=== PATIENT | male | born 1960 | race Caucasian/White ===

== ENCOUNTER 2021-03-27 08:52 | Day surgery (SDC) | payer OTHER, MEDICAID, SELFPAY ==
[~2021-03-27] VITALS: Ht 172.7 cm; Wt 113.4 kg
[2021-03-27] MEDS ORDERED: LEVOFLOXACIN IN DEXTROSE 5 % 100 ML IV ONE (10:00)
[2021-03-27] MEDS ORDERED: CLINDAMYCIN PHOS 600 MG/ D5W 50 ML PREMIX IV ONE (10:00)
[2021-03-27] MEDS ORDERED: BUPIVACAINE LIPOSOME/PF 266 MG/20 ML VIAL INFIL ONE (12:41)
[2021-03-27] MEDS ORDERED: NALOXONE HCL 0.4 MG/ML AMP (NARCAN) IVP PRN (14:00)
[2021-03-27] MEDS ORDERED: MEPERIDINE HCL/PF 25 MG/ML DISP.SYRIN IVP PRN (14:00)
[2021-03-27] MEDS ORDERED: LR 1,000 ML IV SCH (14:00)
[2021-03-27] MEDS ORDERED: MORPHINE 4 MG INJ. 4 MG/ML VIAL IVP PRN ×2 (14:00)
[2021-03-27] MEDS ORDERED: KETOROLAC TROMETHAMINE 30 MG VIAL IVP PRN (14:00)
[2021-03-27] MEDS ORDERED: ONDANSETRON HCL 4 MG/2 ML VIAL IVP PRN ×2 (14:00→16:30)
[2021-03-27] MEDS ORDERED: KETOROLAC TROMETHAMINE 15 MG VIAL IVP PRN (16:30)
[2021-03-27] MEDS ORDERED: LORazepam 2 MG/ML VIAL IVP PRN (16:30)
[2021-03-27] MEDS ORDERED: GABAPENTIN 100 MG CAPSULE PO PRN (16:45)
[2021-03-27] MEDS ORDERED: ONDANSETRON HCL 4 MG/2 ML VIAL ONE (17:01)
[2021-03-27] MEDS ORDERED: fentaNYL CITRATE/PF 100 MCG/2 ML AMP IVP ONE (17:36)
[2021-03-27] MEDS ORDERED: KETOROLAC TROMETHAMINE 30 MG VIAL IVP ONE (17:36)
[2021-03-27] MEDS ORDERED: NEOSTIGMINE METHYLSULFATE 1 MG/ML, 10 ML VIAL IVP ONE (17:36)
[2021-03-27] MEDS ORDERED: DEXAMETHASONE SOD PHOSPHATE 4 MG/ML VIAL IVP ONE (17:36)
[2021-03-27] MEDS ORDERED: SEVOFLURANE 15 MIN GAS INH ONE (17:36)
[2021-03-27] MEDS ORDERED: METOCLOPRAMIDE HCL 10 MG/2 ML VIAL IVP ONE (17:36)
[2021-03-27] MEDS ORDERED: BUPIVACAINE /PF 0.25% 30 ML VIAL INJ ONE (17:36)
[2021-03-27] MEDS ORDERED: MIDAZOLAM HCL 5 MG/5 ML VIAL IVP ONE (17:36)
[2021-03-27] MEDS ORDERED: ROCURONIUM BROMIDE 10 MG/ML (ZEMURON) IV ONE (17:36)
[2021-03-27] MEDS ORDERED: LR 1,000 ML IV.SOLN IV ONE (17:36)
[2021-03-27] MEDS ORDERED: PHENYLEPHRINE HCL 10 MG/ML VIAL (NEOSYNEPHRINE) IV ONE (17:36)
[2021-03-27] MEDS ORDERED: NS IRRIG SOLN 1000 ML IR ONE (17:36)
[2021-03-27] MEDS ORDERED: PROPOFOL 200MG/ 20ML VIAL (DIPRIVAN) IV ONE (17:36)
[2021-03-27] MEDS ORDERED: GLYCOPYRROLATE 0.2 MG/ML VIAL IJ ONE (17:36)
[2021-03-27 19:41] VITALS: BP_SYST 126
[2021-03-28 00:44] VITALS: BP_SYST 137
[2021-03-28 06:27] LABS: BASOPHILS % (AUTO) 0.1 % (0.0-2.0); HEMATOCRIT 41.3 % (36-54); HEMOGLOBIN 13.5 g/dL (14.0-18.0); LYMPHOCYTES # (AUTO) 1.3 K/uL (1.0-5.5); LYMPHOCYTES % (AUTO) 9.8 % (20.5-51.5); MEAN CORPUSCULAR HEMOGLOBIN 31 pg (27-31); MEAN CORPUSCULAR HGB CONC 33 % (32-36); MEAN CORPUSCULAR VOLUME 96 fL (79.0-98.0); MONOCYTES # (AUTO) 1.2 K/uL (0.0-1.0); NEUTROPHILS % (AUTO) 81.1 % (40.0-70.0); PLATELET COUNT (AUTO) 251 K/uL (130-430); RED CELL DISTRIBUTION WIDTH 16.3 % (9.0-15.0); WHITE BLOOD COUNT (AUTO) 13.6 K/uL (4.8-10.8)
[2021-03-28 06:31] LABS: CALCIUM 8.8 mg/dL (8.4-11.0); CREATININE 1.5 mg/dL (0.55-1.30); PHOSPHORUS 2.4 mg/dL (2.7-4.5); POTASSIUM 4.4 mmol/L (3.5-5.1)
[2021-03-28] MEDS ORDERED: SERTRALINE HCL 50 MG TABLET PO SCH (09:00)
[2021-03-28] MEDS ORDERED: LAMIVUDINE PO SCH (09:00)
[2021-03-28] MEDS ORDERED: amLODIPine BESYLATE 5 MG TABLET PO SCH (09:00)
[2021-03-28] MEDS ORDERED: ZIDOVUDINE PO SCH (09:00)
[2021-03-28] MEDS ORDERED: lamiVUDine 150 MG TABLET PO ONE (14:00)
[2021-03-28] MEDS ORDERED: ZIDOVUDINE 300 MG PO ONE (14:00)
[2021-03-28 18:07] VITALS: BP_SYST 133
[2021-03-29] MEDS ORDERED: lamiVUDine 150 MG TABLET PO SCH (09:00)
[2021-03-29] MEDS ORDERED: ZIDOVUDINE 300 MG PO SCH (09:00)
== END 2021-03-28 19:00 | disposition home or self-care (01) ==
LOC: SDS 08:52 → SMU 08:53 → SDS 03-28 19:00
PROVIDERS: ATTEND Surgery
DX: K40.90 Unilateral inguinal hernia, without obstruction or gangrene, not specified as recurrent (principal); K43.2 Incisional hernia without obstruction or gangrene; Z88.0 Allergy status to penicillin; E66.01 Morbid (severe) obesity due to excess calories; Z68.35 Body mass index [BMI] 35.0-35.9, adult; Z86.718 Personal history of other venous thrombosis and embolism; Z21 Asymptomatic human immunodeficiency virus [HIV] infection status; Z79.899 Other long term (current) drug therapy; Z20.822 Contact with and (suspected) exposure to COVID-19
CPT/HCPCS: 36415; 49507; 49561; 49568; 80048; 83735; 84100; 85025; 88302; C1781 ×2; C9290; J1100; J1885 ×2; J1956; J2250; J2370; J2405; J2704; J2710; J2765; J3010; J3490 ×3; J7120; U0003